=== PATIENT | male | born 1970 | race Caucasian/White ===

== ENCOUNTER 2025-04-04 08:36 | Emergency (ER) | payer OTHER, SELFPAY ==
[2025-04-04 08:39] VITALS: BP 152/106
[2025-04-04 08:51] VITALS: BMI 36.5
--- NOTE | 2025-04-04 09:00 | ED.GENMED ---
History of Present Illness
General
Chief Complaint: Cardiac Symptoms
Time Seen by Provider: 04/04/25 08:54
History of Present Illness
History of Present Illness:
TIME OF INITIAL ENCOUNTER: 9 AM
HPI: Over the past couple months, the patient's been having paroxysmal episodes of palpitations. He has had some sort of 'tachycardia' requiring ablation about 5 years ago at the [facility]. He has some vague chest discomfort at times that he states is
related to all the palpitations that he has been feeling. He has been having trouble getting timely care at the [facility]. He used to be on propranolol and was also on metoprolol however had bradycardic rates of around 42 and stopped taking his
medications.
EXAM:
GENERAL: Well appearing in no distress
HEENT: Moist oral mucosa
CARDIOVASCULAR: No murmurs, intermittently tachycardic heart rate, intermittently irregular rhythm, No chest wall tenderness
PULMONARY: No respiratory distress, breath sounds are clear and equal
ABDOMEN: Soft with no peritoneal signs, no tenderness
NEUROLOGIC: Excellent strength all extremities, no coordination deficits
PSYCHIATRIC: Appropriate mental status, normal insight and judgement
EXTREMITIES: Nontender, no edema, moves all extremities equally
SKIN: No rash, no lesions
NUMBER AND COMPLEXITY OF PROBLEMS ADDRESSED AT THE ENCOUNTER
� Chronic conditions affecting care: High blood pressure, has had an ablation
� Acute Exacerbation and/or Progression of Chronic Illness: This is an acute problem
� Differential Diagnosis includes: Atrial dysrhythmia such as A-fib/flutter, atrial tachycardia, VT unlikely
AMOUNT AND/OR COMPLEXITY OF DATA TO BE REVIEWED AND ANALYZED
� I performed an independent evaluation of and my interpretation is:
EKG: A flutter with 2-[address]:
X-rays:
Laboratory Studies: Troponin 0.015, white count 12.5, hemoglobin normal, chemistries unremarkable, glucose 191
Other:
� Review of other/old records: No old records available for review in [facility]
� Clinical information was obtained by an independent historian: I spoke to his daughter at bedside
� Prescriptions/Medications Considered but not given:
� Further testing considered but not performed:
RISK OF COMPLICATIONS AND/OR MORBIDITY OR MORTALITY OF PATIENT MANAGEMENT
� Social determinants of health affecting care: Gets medical care through the [facility] but is been having trouble getting appointments in a timely fashion
� Discussion with other providers:
� Escalation of care including admission/observation vs risk of discharge considered: The patient initially came in with a heart rate of 85, then went to the 140s in triage, as I initially walked in the room his heart rate was in
the 140s then spontaneously went into the 80s and then went back up into the 140s again.
The patient is paroxysmal and going in and out of an atrial dysrhythmia. His rhythm varies frequently from sinus in the 80s to atrial tachycardia in the 140s. Will give low-dose beta-ramona by IV and orally.
ANY OTHER UPDATES:
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 He is male and relatively young. [id number] score would be 1 based on the high blood pressure history.
After meds given, heart rate remained in the 80s and sinus
Phy Exam
Physical Exam
Physical Exam:
See HPI
Course
Orders/Labs/Results
Orders:
Orders
04/04/25 08:36
Electrocardiogram (*1) Urgent
Reason for Study: Tachycardia
EKG- Treatment ONCE
04/04/25 09:00
TSH Reflex To Free T4 Urgent
04/04/25 09:09
Metoprolol Xl [Toprol Xl] 12.5 mg PO NOW STA
Metoprolol [Lopressor] 2.5 mg IV NOW STA
04/04/25 09:17
Complete Blood Count/With Diff Urgent
Comprehensive Metabolic Panel Urgent
Magnesium Urgent
Troponin I Urgent
Abnormal Lab Results
04/04/25
09:17
WBC 12.5 H 10^3/uL
(4.8-10.8)
Abs Immat Gran (auto) 0.2 H 10^3/uL
(0-0.05)
Absolute Neuts (auto) 8.5 H 10^3/uL
(1.4-6.5)
Absolute Monos (auto) 0.8 H 10^3/uL
(0.1-0.6)
Immature Gran % 1.2 H %
(0-0.5)
BUN 26 H mg/dl
(9-20)
Glucose 191 H mg/dl
(70-99)
04/04/25 09:17
04/04/25 09:17
Vital Signs
Initial and Last Documented VS:
Initial Vital Signs
Temp Pulse Resp BP Pulse Ox
36.8 C 85 16 152/106 100
04/04/25 08:39 04/04/25 08:39 04/04/25 08:39 04/04/25 08:39 04/04/25 08:39
Last Documented Vital Signs
Temp Pulse Resp BP Pulse Ox
36.8 C 65 16 144/89 93
04/04/25 08:39 04/04/25 10:20 04/04/25 08:39 04/04/25 10:20 04/04/25 10:20
*Critical Care Note
Total Time (30-74mins, 75-104mins- exclusive of procedures): Not Applicable
ED Attending Note
-
Portions of this chart may have been created with voice recognition software.� Occasional wrong word or��sound alike� substitutions may have occurred due to the inherent limitations of voice recognition software.
Discharge Plan
Departure
Patient Disposition: Home (Routine Discharge)
Date of Disposition: 04/04/25
Time of Disposition: 10:44
Patient with high blood pressure during this ER visit?: Yes
Discharge Problem:
Intermittent atrial flutter
Instructions: Atrial flutter, BLOOD PRESSURE
Referrals:
UNKNOWN - PT DOES,NOT KNOW [Family Provider]
Activity Restrictions/Additional Instructions:
I recommend that you discuss with your [facility] curriculum [facility] regarding only taking aspirin for stroke prevention as they may want you to be on a full anticoagulation such as Eliquis. I recommend that you resume metoprolol at half of a 25 mg tablet (12.5
mg) once daily. You could take an extra dose if needed if your heart rate goes up again. Return here if worse or other concerns. Of note, your blood sugar was slightly high at 191 I recommend you follow the primary care doctor as well. Cardiac
blood work shows no sign of heart attack. Electrolytes are normal.
Interventions
Interventions:
*Risk Screen - Suicide Last Done: 04/04/25 08:40
*General Assessment Last Done: 04/04/25 08:51
*Neglect/Abuse Screening Last Done: 04/04/25 08:40
*ED- Fall Risk Assessment Last Done: 04/04/25 08:51
*ED COVID-19 Vaccine History Last Done: 04/04/25 08:51
*Nursing Disposition Last Done: 04/04/25 10:57
ED- Pulmonary Assessment Last Done: 04/04/25 08:51
ED- Cardiac Assessment Last Done: 04/04/25 08:51
Discharge Date and Time
Discharge Date/Time: 04/04/25 10:57
Print Language: [id number]
[2025-04-04 09:02] VITALS: BP 153/103
[2025-04-04] MEDS: LOPRESSOR 2.5 MG IV (09:13)
[2025-04-04 09:20] VITALS: BP 171/100
[2025-04-04] MEDS: TOPROL XL 12.5 MG PO (09:23)
[2025-04-04 09:30] LABS: % Basophils 0.3 % (0-2); % Eosinophils 1.8 % (0-6); % Immature Granulocytes 1.2 % (0-0.5); % Lymphocytes 22.4 % (20.5-51.1); % Monocytes 6.6 % (1.7-9.3); % Neutrophils 67.7 % (42.2-75.2); Absolute Eosinophils 0.2 10^3/uL (0-0.7); Absolute Immature Granulocytes 0.2 10^3/uL (0-0.05); Absolute Lymphocytes 2.8 10^3/uL (1.2-3.4); Absolute Monocytes 0.8 10^3/uL (0.1-0.6); Absolute Neutrophils 8.5 10^3/uL (1.4-6.5); Mean Corpuscular Hgb 30.8 pg (27.0-31.0); Mean Corpuscular Volume 85.5 fL (80.0-94.0); Mean Platelet Volume 10.1 fL (7.4-10.4); Nucleated Red Blood Cells % 0 % (-); Platelet Count 217 10^3/uL (130-400); Red Blood Cell Count 5.85 10^6/uL (4.70-6.10); Red Cell Dist. Width 14.5 % (11.5-14.5); White Blood Cell Count 12.5 10^3/uL (4.8-10.8)
[2025-04-04 09:40] VITALS: BP 145/75
[2025-04-04 09:52] LABS: ALT (SGPT) 39 U/L (0-50); AST (SGOT) 26 U/L (17-59); Alkaline Phosphatase 63 U/L (38-126); Blood Urea Nitrogen 26 mg/dl (9-20); Calcium 9.5 mg/dl (8.4-10.2); Carbon Dioxide 25 mmol/L (22-30); Chloride 104 mmol/L (98-107); Estimated Creatinine Clearance 102 ml/min; Glucose 191 mg/dl (70-99); Magnesium 2.2 mg/dl (1.6-2.3); Potassium 3.6 mmol/L (3.5-5.1); Sodium 140 mmol/L (135-145); Total Bilirubin 0.7 mg/dl (0.2-1.3); Total Protein 7.6 g/dl (6.3-8.2); eGFR > 60.00
[2025-04-04 09:57] LABS: Troponin I 0.015 ng/ml
[2025-04-04 10:00] VITALS: BP 144/90
[2025-04-04 10:20] VITALS: BP 144/89
[2025-04-04 15:50] LABS: TSH Reflex To Free T4 4.44 uIU/ml (0.47-4.68)
== END 2025-04-04 10:57 | disposition home or self-care (01) ==
LOC: EMR 08:36
PROVIDERS: EMERGENCY PHYSICIAN Emergency Medicine
DX: I48.92 Unspecified atrial flutter (principal); R07.89 Other chest pain; R03.0 Elevated blood-pressure reading, without diagnosis of hypertension
CPT/HCPCS: 99284; 96374; 80053; 83735; 84443; 84484; 85025; 93005